=== PATIENT | female | born 1985 | race Caucasian/White ===

== ENCOUNTER 2017-12-14 22:13 | Emergency (ER) | payer OTHER ==
[~2017-12-14] VITALS: Ht 157.5 cm; Wt 98.7 kg
[~2017-12-14 22:13] MED LIST: DOCUSATE SODIU100 MG PO; FERROUS SULFAT325 MG PO; HYDROCODON-ACE1 EAC7 PO; IBUPROFEN800 MG PO; MIRENA52 MG IY; MOTRIN600 MG PO; MOTRIN800 MG PO; NOHOMEMEDS; NORCO 5/3251 TABLET PO; PRENATAL TABLE1 EAC3 PO; TYLENOL REGULA325 MG PO; VITAMIN B-625 MG PO; VITAMIN C500 M1 PO; ZOFRAN ODT4 MG PO; ZOFRAN4 MG PO
[2017-12-15] MEDS ORDERED: PREDNISONE20 MG PO (00:21)
[2017-12-15 00:39] VITALS: BP 120/70
== END 2017-12-15 00:43 | disposition home or self-care (01) ==
LOC: EME 22:13
DX: J18.9 Pneumonia, unspecified organism (principal); J98.01 Acute bronchospasm; F41.0 Panic disorder [episodic paroxysmal anxiety]; K21.9 Gastro-esophageal reflux disease without esophagitis; Z88.0 Allergy status to penicillin; Z88.8 Allergy status to other drugs, medicaments and biological substances
CPT/HCPCS: 94640; 94640 76; 99281; 99284; J7512